=== PATIENT | male | born 1945 | race Caucasian/White ===

== ENCOUNTER 2018-05-25 05:38 | Day surgery (SDC) | payer MEDICARE, BC ==
[2018-05-25] MEDS: BUPIVACAINE 0.25%/EPI (SDV) 10 ML INJ
[2018-05-25 07:13] LABS: ADD MAN DIFF? NO
[2018-05-25 07:17] LABS: BASOPHIL # 0.1 10^3/ul (0.0-0.1); BASOPHILS % 0.6 % (0.0-2.0); EOSINOPHILS # 0.2 10^3/ul (0.0-0.5); EOSINOPHILS % 2.4 % (0.0-7.0); HEMATOCRIT 41.5 % (42.0-52.0); HEMOGLOBIN 14.1 g/dl (14.0-18.0); LYMPHOCYTES # 2.3 10^3/ul (0.8-2.9); LYMPHOCYTES % 28.1 % (15.0-51.0); MEAN CORPUSCULAR HEMOGLOBIN 29.6 pg (29.0-33.0); MEAN PLATELET VOLUME 10.4 fl (7.4-10.4); MONOCYTE # 0.7 10^3/ul (0.3-0.9); MONOCYTES % 8.2 % (0.0-11.0); NEUTROPHILS % 60.3 % (39.0-77.0); PLATELET COUNT 227 10^3/UL (140-415); RED BLOOD COUNT 4.77 10^6/ul (4.70-6.10); RED CELL DISTRIBUTION WIDTH 13.6 % (11.5-14.5)
[2018-05-25 07:17] LABS: WHITE BLOOD COUNT 8.3 10^3/ul (4.8-10.8)
[2018-05-25] MEDS ORDERED: MIDAZOLAM 1 MG/ML 2 ML INJ (07:24)
[2018-05-25] MEDS ORDERED: ROPIVACAINE 0.5 % 30 ML VIAL (07:24)
[2018-05-25] MEDS ORDERED: METOCLOPRAMIDE 10 MG INJ (07:24)
[2018-05-25] MEDS ORDERED: ONDANSETRON 4 MG INJ IV (07:30)
[2018-05-25] MEDS ORDERED: hydrALAzine 20 MG INJ IV (07:30)
[2018-05-25] MEDS ORDERED: OXYCODONE/ACETAMINOPHEN (5/325) TAB PO ×2 (07:30)
[2018-05-25] MEDS ORDERED: HYDROmorphONE 1 MG/5 ML IV SYRINGE IV ×3 (07:30)
[2018-05-25] MEDS ORDERED: DIPHENHYDRAMINE 50 MG INJ IV (07:30)
[2018-05-25] MEDS ORDERED: MEPERIDINE 25 MG INJ IV (07:30)
[2018-05-25] MEDS ORDERED: LABETALOL HCL 20MG INJ IV (07:30)
[2018-05-25 07:35] LABS: INR 0.92; PARTIAL THROMBOPLASTIN TIME 29.6 Sec (23.0-35.0); PROTIME 12.4 Sec (11.9-14.9)
[2018-05-25 07:38] LABS: ANION GAP 9 (5-13); BLOOD UREA NITROGEN 22 mg/dl (7-20); CALCIUM 9.3 mg/dl (8.4-10.2); CARBON DIOXIDE 28 mmol/L (21-31); CHLORIDE 103 mmol/L (97-110); CREATININE 0.86 mg/dl (0.61-1.24); GLUCOSE 112 mg/dl (70-220); POTASSIUM 4.1 mmol/L (3.5-5.1); SODIUM 140 mmol/L (135-144)
[2018-05-25] MEDS ORDERED: PROPOFOL 20 ML (07:40)
[2018-05-25] MEDS ORDERED: CEFAZOLIN 1 GM INJ ×3 (07:40→11:48)
[2018-05-25] MEDS ORDERED: morphine 2 MG INJ IV (08:00)
[2018-05-25] MEDS ORDERED: FENTAnyl 50 MCG/ML VIAL ×2 (08:04→10:17)
[2018-05-25] MEDS: POLYMYXIN/BACITRACIN 1L IRRIG (08:39)
[2018-05-25] MEDS: NEOMYC/POLYMYX/BACIT 30 GM OINT (11:52)
[2018-05-25] MEDS ORDERED: ONDANSETRON 4 MG INJ (11:52)
[2018-05-25] MEDS: ONDANSETRON 4 MG INJ IV (12:50)
== END 2018-05-25 13:50 | disposition home or self-care (01) ==
LOC: SDS 05:38
DX: M20.42 Other hammer toe(s) (acquired), left foot (principal); I10 Essential (primary) hypertension; E78.5 Hyperlipidemia, unspecified; I25.10 Atherosclerotic heart disease of native coronary artery without angina pectoris
CPT/HCPCS: 28285; 73630-LT; 80048; 82306; 85025; 85610; 85730